=== PATIENT | female | born 1975 | race Caucasian/White ===

== ENCOUNTER 2020-07-13 20:53 | Emergency (ER) | payer BC, OTHER ==
[2020-07-13] MEDS ORDERED: Acetaminophen/HYDROcodone 325-10 MG Tab PO ONE (20:54)
[2020-07-13] MEDS ORDERED: Cyclobenzaprine 10 MG Tab PO ONE (20:54)
[2020-07-13] MEDS ORDERED: Propofol 200 MG/20 ML SDV IV ONE (20:54)
[2020-07-13] MEDS ORDERED: Ondansetron 4 MG/2 ML SDV IVPUSH ONE (21:04)
[2020-07-13] MEDS ORDERED: HYDROmorphone 1 MG/ML Syringe IVPUSH ONE (21:04)
[2020-07-13] MEDS ORDERED: fentaNYL 100 MCG/2 ML SDV IVPUSH ONE (22:10)
--- NOTE | 2020-07-13 22:27 | CR ---
PROCEDURE INFORMATION: Exam: XR Right Humerus Exam date and time: 07/13/2020 9:48 PM Age: 44 years old Clinical indication: Pain; Upper arm and shoulder; Right; Additional info: Fall down stairs, pain in right shoulder, right scapula, right humerus and right hip TECHNIQUE: Imaging protocol: XR Right humerus. Views: 2 or more views. Total images: 2 COMPARISON: No relevant prior studies available. FINDINGS: Bones/joints: Anterior dislocation at the glenohumeral joint. No definite fracture of the right humerus. Soft tissues: Normal. IMPRESSION: Anterior dislocation at the glenohumeral joint. No definite fracture of right humerus.
--- NOTE | 2020-07-13 22:29 | CR ---
PROCEDURE INFORMATION: Exam: XR Right Clavicle, Complete Exam date and time: 07/13/2020 9:55 PM Age: 44 years old Clinical indication: Pain; Upper arm and shoulder; Right; Additional info: Fall down stairs, pain TECHNIQUE: Imaging protocol: XR Right clavicle complete. Views: Any number of views. Total images: 2 COMPARISON: No relevant prior studies available. FINDINGS: Bones/joints: Dislocation at the right glenohumeral joint. No definite fracture. Soft tissues: Normal. IMPRESSION: 1. Dislocation at the glenohumeral joint. 2. No fracture right clavicle.
--- NOTE | 2020-07-13 22:30 | EDM.PDOC ---
ED HPI GENERAL MEDICAL PROBLEM - General Chief Complaint: Upper Extremity Injury/Pain Stated Complaint: FELL DOWN STAIRS / POSSIBLE BROKEN Time Seen by Provider: 07/13/20 21:15 Source of Information: Reports: Patient, RN History Limitations: Reports: No Limitations - History of Present Illness INITIAL COMMENTS - FREE TEXT/NARRATIVE: ED via w/c , C/O pain to right should right side of neck and hip after slipping on jayda stairs and landing first on buttock then right side. No loss of consciousness. Pain worse with movement and weight bearing. States able to walk from house to car with assistance of family - Related Data Allergies Allergy/AdvReac Type Severity Reaction Status Date / Time oxycodone Allergy Hives Verified 07/13/20 21:07 Penicillins Allergy Anaphylactic Verified 07/13/20 21:07 Shock propoxyphene Allergy Nausea and Verified 07/13/20 21:07 Vomiting prednisone AdvReac Elevated Verified 07/13/20 21:07 Blood Glucose Home Meds: Home Meds ClonazePAM [KlonoPIN] 1.5 mg PO BEDTIME 07/13/20 [History] Glimepiride [Amaryl] 3 mg PO DAILY 07/13/20 [History] Levothyroxine Sodium [Synthroid] 137 mcg PO DAILY 07/13/20 [History] Sertraline HCl [Zoloft] 100 mg PO DAILY 07/13/20 [History] atorvaSTATin [Lipitor] 10 mg PO BEDTIME 07/13/20 [History] metFORMIN [Glucophage] 100 mg PO BIDMEALS 07/13/20 [History] Past Medical History HEENT History: Reports: Impaired Vision Cardiovascular History: Reports: High Cholesterol Psychiatric History: Reports: Anxiety Endocrine/Metabolic History: Reports: Diabetes, Type II, Hypothyroidism Hematologic History: Reports: Iron Deficiency Social & Family History - Tobacco Use Tobacco Use Status *Q: Never Tobacco User Second Hand Smoke Exposure: No - Caffeine Use Caffeine Use: Reports: None - Recreational Drug Use Recreational Drug Use: No Review of Systems - Review of Systems Review Of Systems: Comprehensive ROS is negative, except as noted in HPI. ED EXAM, GENERAL - Physical Exam Exam: See Below Exam Limited By: Other (pain upper extremity) General Appearance: Alert, Moderate Distress, Obese Eye Exam: Bilateral Eye: EOMI, PERRL Ears: Normal External Exam, Hearing Grossly Normal Nose: Normal Inspection Throat/Mouth: Normal Inspection Head: Atraumatic, Normocephalic Neck: Normal Inspection, Tender Lateral (right). No: Tender Midline Respiratory/Chest: No Respiratory Distress, Lungs Clear, Normal Breath Sounds Cardiovascular: Normal Peripheral Pulses, Regular Rate, Rhythm GI/Abdominal: Normal Bowel Sounds, Soft Extremities: Arm Pain (right upper, shoulder, clavicle and scaupolar) Neurological: Alert, Oriented, Normal Cognition, Normal Gait, Normal Reflexes Psychiatric: Normal Affect, Normal Mood, Anxious Skin Exam: Warm, Dry, Intact, Normal Color ED TRAUMA EXTREMITY PROCEDURES - Joint Reduction Right Shoulder Sedation: Conscious Sedation (per EMULSION COATER) Pre-Procedure NV Status: Normal Post-Procedure NV Status: Normal Technique: Traction/Counter Traction Number of Attempts: 2 Post-Reduction Imaging: Completely Reduced Joint Reduction Complications: No Course - Vital Signs Last Recorded V/S: Last Vital Signs Temp 96.8 F L 07/13/20 21:11 Pulse 88 07/13/20 21:11 Resp 24 H 07/13/20 21:11 BP 135/99 H 07/13/20 21:11 Pulse Ox 100 07/13/20 21:11 - Orders/Labs/Meds Meds: Medications Discontinued Medications Generic Name Dose Route Start Last Admin Trade Name Andreq PRN Reason Stop Dose Admin Hydrocodone Bitart/Acetaminophen Confirm 07/14/20 00:00 Acetaminophen/Hydrocodone 325-10 Mg Tab Administered 07/14/20 00:01 Dose 2 tab .ROUTE .STK-MED ONE Cyclobenzaprine HCl Confirm 07/13/20 23:59 Cyclobenzaprine 10 Mg Tab Administered 07/14/20 00:00 Dose 20 mg .ROUTE .STK-MED ONE Fentanyl 50 mcg 07/13/20 22:10 07/13/20 22:16 Fentanyl 100 Mcg/2 Ml Sdv IVPUSH 07/13/20 22:11 50 mcg ONETIME ONE Administration Hydromorphone HCl 1 mg 07/13/20 21:04 07/13/20 21:22 Hydromorphone 1 Mg/Ml Syringe IVPUSH 07/13/20 21:05 1 mg ONETIME ONE Administration Ondansetron HCl 4 mg 07/13/20 21:04 07/13/20 21:22 Ondansetron 4 Mg/2 Ml Sdv IVPUSH 07/13/20 21:05 4 mg ONETIME ONE Administration Departure - Departure Time of Disposition: 23:59 Disposition: Home, Self-Care 01 Condition: Good Clinical Impression: Fall at home, Dislocation of right shoulder joint, Contusion, buttock - Discharge Information *PRESCRIPTION DRUG MONITORING PROGRAM REVIEWED*: No *COPY OF PRESCRIPTION DRUG MONITORING REPORT IN PATIENT JLUIS: No Instructions: How To Use a Sling, [id number], Pain Medicine Instructions, [id number], Shoulder Dislocation, [id number] Forms: ED Department Discharge Additional Instructions: ice to bruised areas shoulder immobilizer flexeril 10 mg one every 8 hours as needed for spasm hydrocodone 10/325 one every 6 hours as needed for severe pain Ortho follow up [phone] [facility] [phone] Physical Therapy Clinic recheck later this week Sepsis Event Note (ED) - Evaluation Sepsis Screening Result: No Definite Risk - Focused Exam Vital Signs: Vital Signs Temp Pulse Resp BP Pulse Ox 07/13/20 21:11 96.8 F L 88 24 H 135/99 H 100
--- NOTE | 2020-07-13 22:36 | CT ---
PROCEDURE INFORMATION: Exam: CT Cervical Spine Without Contrast Exam date and time: 07/13/2020 9:37 PM Age: 44 years old Clinical indication: Neck pain; Additional info: Fall down stairs, neck pain TECHNIQUE: Imaging protocol: Computed tomography images of the cervical spine without contrast. Total images: 371 Radiation optimization: All CT scans at this facility use at least one of these dose optimization techniques: automated exposure control; mA and/or kV adjustment per patient size (includes targeted exams where dose is matched to clinical indication); or iterative reconstruction. COMPARISON: No relevant prior studies available. FINDINGS: Bones/joints: See "Discs/Spinal canal/Neural foramina" finding. Discs/Spinal canal/Neural foramina: Degenerative changes with spurring most pronounced at the C5-C6 and C6-C7 levels. Suggestion of some neural foraminal encroachment. Cervical vertebral body heights are maintained. Lymph nodes: Few scattered non-specific cervical lymph nodes. Lungs: Minimal patchy ground-glass opacity at the lung apices. Soft tissues: Unremarkable. IMPRESSION: 1. No acute fracture cervical spine. 2. See above for other details.
--- NOTE | 2020-07-13 22:44 | CT ---
PROCEDURE INFORMATION: Exam: CT Pelvis Without Contrast; Skeletal Exam date and time: 07/13/2020 9:37 PM Age: 44 years old Clinical indication: Hip pain and pelvic pain; Right hip; Additional info: Fall down stairs, pain TECHNIQUE: Imaging protocol: Computed tomography images of the pelvis without contrast. Exam focused on the skeletal structures. Total images: 453 Radiation optimization: All CT scans at this facility use at least one of these dose optimization techniques: automated exposure control; mA and/or kV adjustment per patient size (includes targeted exams where dose is matched to clinical indication); or iterative reconstruction. COMPARISON: CT ABDOMEN/PELVIS 12/20/2011 4:02 PM FINDINGS: Reproductive: 5.7 cm cyst right adnexa. Bones/joints: Degenerative changes of the visualized lower lumbar spine. Soft tissues: There is subcutaneous/soft tissue stranding/contusion right gluteal soft tissues. IMPRESSION: 1. Soft tissue stranding/contusion right gluteal soft tissues. 2. No acute fracture. 3. 5.7 cm cyst right adnexa possibly related to right ovary. Not optimally characterized on this study. Recommend future elective non emergent pelvic ultrasound to further characterize.
--- NOTE | 2020-07-13 23:39 | CR ---
PROCEDURE INFORMATION: Exam: XR Right Shoulder Exam date and time: 07/13/2020 10:55 PM Age: 44 years old Clinical indication: Other: Post reduction TECHNIQUE: Imaging protocol: XR Right shoulder. Views: 2 or more views. COMPARISON: CR Humerus Rt 07/13/2020 9:48 PM FINDINGS: Bones/joints: Glenohumeral joint is in anatomic alignment. No fracture. Soft tissues: Normal. IMPRESSION: Successful reduction of right shoulder dislocation.
[2020-07-13] MEDS ORDERED: Cyclobenzaprine 10 MG Tab ONE (23:59)
[2020-07-14] MEDS ORDERED: Acetaminophen/HYDROcodone 325-10 MG Tab ONE
== END 2020-07-14 00:26 | disposition home or self-care (01) ==
LOC: DL.ED 20:53
DX: S43.014A Anterior dislocation of right humerus, initial encounter (principal); S30.0XXA Contusion of lower back and pelvis, initial encounter; E78.00 Pure hypercholesterolemia, unspecified; E11.9 Type 2 diabetes mellitus without complications; E03.9 Hypothyroidism, unspecified; Z79.84 Long term (current) use of oral hypoglycemic drugs; Z79.899 Other long term (current) drug therapy; Z88.5 Allergy status to narcotic agent; Z88.0 Allergy status to penicillin; Z88.8 Allergy status to other drugs, medicaments and biological substances; W10.9XXA Fall (on) (from) unspecified stairs and steps, initial encounter; Y92.009 Unspecified place in unspecified non-institutional (private) residence as the place of occurrence of the external cause
CPT/HCPCS: 01620; 23650; 72125; 72192; 73000-RT; 73030-RT; 73060-RT; 96374; 96375; 99284; 99284-25; A9270-GY; J1170; J2405; J2704; J3010

== ENCOUNTER 2023-05-09 20:15 | Emergency (ER) | payer BC, OTHER ==
[2023-05-09] MEDS: Sodium Chloride 0.9% 1,000 ML IV ONE (20:19)
[2023-05-09] MEDS: Famotidine 20 MG/2 ML SDV IVPUSH ONE (20:44)
[2023-05-09] MEDS: diphenhydrAMINE 50 MG/ML SDV IVPUSH ONE (20:45)
[2023-05-09] MEDS: methylPREDNISolone Sodium Succinate 125 MG/2 ML SDV IVPUSH ONE (20:45)
== END 2023-05-09 21:52 | disposition home or self-care (01) ==
LOC: DL.ED 20:15
DX: T78.40XA Allergy, unspecified, initial encounter (principal); E78.00 Pure hypercholesterolemia, unspecified; E11.9 Type 2 diabetes mellitus without complications; E03.9 Hypothyroidism, unspecified; Z88.0 Allergy status to penicillin; Z88.8 Allergy status to other drugs, medicaments and biological substances; Z79.84 Long term (current) use of oral hypoglycemic drugs; Z79.899 Other long term (current) drug therapy
CPT/HCPCS: 96374; 96375; 99283; 99283-25; J1200; J2930; J3490; J7030